=== PATIENT | male | born 1965 | race Caucasian/White ===

== ENCOUNTER 2019-07-03 12:22 | Emergency (ER) | payer BC ==
[~2019-07-03] VITALS: Ht 180.3 cm; Wt 93.0 kg
[2019-07-03 13:22] LABS: Basophils # (auto) 0.1 uL; Basophils % (auto) 0.6 % (0.0-2.0); Eosinophils # (auto) 0.1 uL; Eosinophils % (auto) 1.7 % (0.0-7.0); Hematocrit 42.8 % (41.0-53.0); Lymphocytes # (auto) 1.2 uL; Mean Corpuscular Hemoglobin 32.5 pg (28.0-32.0); Mean Corpuscular Hgb Conc. 35.1 g/dL (32.0-36.0); Mean Corpuscular Volume 92.7 fL (80.0-100.0); Monocytes # (auto) 0.6 uL; Monocytes % (auto) 6.5 % (0.0-12.0); Neutrophils # (auto) 6.8 uL; Neutrophils % (auto) 77.2 % (37.0-80.0); Nucleated Red Blood Cells % 0.1 %; Platelet Count (auto) 223 10^3/uL (140-450); Red Blood Cells 4.62 10^6/uL (4.5-5.90); Red Cell Distribution Width 12.7 % (11.8-14.3); White Blood Cell 8.8 10^3/uL (4.4-10.8)
[2019-07-03 13:53] LABS: Alanine Aminotransferase 27 U/L (16-61); Albumin 4.1 g/dL (3.4-5.0); Anion Gap 7 (5-15); Aspartate Aminotransferase 19 U/L (15-37); Blood Urea Nitrogen 21 mg/dL (7-18); Calcium 8.5 mg/dL (8.5-10.1); Carbon Dioxide 27 mmol/L (21-32); Chloride 105 mmol/L (98-107); Glucose 105 mg/dL (74-106); Potassium 4.2 mmol/L (3.5-5.1); Sodium 139 mmol/L (136-145)
[2019-07-03 13:57] LABS: BUN/Creatinine Ratio 19.8
[2019-07-03 13:58] LABS: Alkaline Phosphatase 50 U/L (45-117); Bilirubin, Total 0.4 mg/dL (0.2-1.0); GFR African American 93 mL/min; GFR Non-African American 77 mL/min; Total Protein 7.8 g/dL (6.4-8.2)
[2019-07-03 15:11] VITALS: BP 129/82
== END 2019-07-03 15:12 | disposition home or self-care (01) ==
LOC: ER 12:22
DX: F41.9 Anxiety disorder, unspecified (principal)
CPT/HCPCS: 36415; 80053; 84484; 85025; 93005